=== PATIENT | male | born 1970 | race Caucasian/White ===

== ENCOUNTER 2022-03-14 05:19 | Day surgery (SDC) | payer OTHER ==
[~2022-03-14] VITALS: Ht 162.6 cm; Wt 75.2 kg
--- NOTE | ~2022-03-14 | HP ---
[facility] [address] [place], [place] [address] Draft ADMISSION DATE: 03/14/2022 REASON FOR ADMISSION: Giant incarcerated right inguinal hernia, incompletely reducible. HISTORY OF PRESENT ILLNESS: This 51-year-old white man is known to have a longstanding right inguinal hernia and a small left inguinal hernia as well. He has been evaluated for this in the past. He presented to the emergency room late last night, evaluated by Dr. Marie, showing massive amount of swelling in the right hemiscrotum and to smaller degree a hernia on the left side. Dr. Marie in conjunction with other personnel was unable to reduce the hernia. A CT scan was performed, which showed considerable loops of bowel out in a large right inguinal hernia. He is admitted for further evaluation and care to include repair of the right inguinal hernia. PAST MEDICAL HISTORY: Now recently positive for influenza A. He has no severe cough, though that may have been a factor in producing herniation at this time. He denies other chronic medical conditions. REVIEW OF SYSTEMS: He denies any shortness of breath. He has had no nausea or vomiting. PHYSICAL EXAMINATION: GENERAL: A small white man with lower lip piercing noted. NECK: Trachea is midline. CHEST: Clear. I hear no wheeze or rhonchi. HEART: Regular. ABDOMEN: Nondistended and soft. There is extremely large right scrotal hernia. Various manipulations allow for reduction of the hernia, but incompletely so. There is a left inguinal hernia that is reducible with manipulation. He appears to have hydrocele of the right hemiscrotum to a degree as well. IMAGING: Review of the CT scan is consistent with these findings. ASSESSMENT AND PLAN: The patient has incompletely reducible (incarcerated) right inguinal hernia, for which repair is recommended. His concurrent influenza A is notable, but will have to be contended with due to the need for repair of the hernia. The risks of bleeding, infection, recurrence, and other unforeseen complications were reviewed with him. He PATIENT NAME: KUSUM LISA HISTORY AND PHYSICAL DATE OF : 74 REPORT #: [id number] PHYSICIAN: IVETTE DENNIS MD PCP: NO PRIMARY CARE PHYSICIAN REPORT IS CONFIDENTIAL AND NOT TO BE RELEASED WITHOUT AUTHORIZATION [facility] [address] [place], [place] [address] Draft agrees to proceed. MD CAM Boyd/JAY /[id number] cc: LETICIA Kearney Copies: ~ PATIENT NAME: KUSUM LISA Bulmaro HISTORY AND PHYSICAL DATE OF : 74 REPORT #: [id number] PHYSICIAN: IVETTE DENNIS MD PCP: NO PRIMARY CARE PHYSICIAN REPORT IS CONFIDENTIAL AND NOT TO BE RELEASED WITHOUT AUTHORIZATION
--- NOTE | ~2022-03-14 | CONS ---
[facility] [address] [place], [place] [address] Draft DATE OF CONSULTATION: 03/14/2022 TIME: 11:10 a.m. ISSUE: Concerns regarding anesthesia plan. 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 He is known of this hernia in the past. The patient had a fair amount of coughing apparently which caused worsening of his herniation. The hernia was not able to be reduced by Dr. Deal with the assistance of a nurse (Dominic). I saw him myself this morning and was able to reduce the hernia essentially completely, though he does have a residual hydrocele on the right side inferiorly. Given the extensive amount of bowel that had herniated into the hemiscrotum, I recommended operative repair as it was not initially clear that complete reduction was undertaken. The patient was found to have influenza A on testing, likely accounting for his cough and acute exacerbation of his long-standing left and right inguinal hernias. Plans were made for operative repair of the large right inguinal hernia and discussion with the musculoskeletal physiotherapist (Shlomo Uriostegui CRNA) indicated a preferred anesthetic approach of an epidural or spinal anesthetic given his respiratory issue with influenza A. The patient has become adamant that he will allow "no needle to come toward my spine," and adamantly refuses any regional type anesthetic. I have conferred with the musculoskeletal physiotherapist about this situation. I think that the approach of regional anesthetic is optimal under the circumstances, particularly given his underlying influenza. The patient does understand that I would be fully supportive of regional anesthetic and I have assured him that it is safe, effective and in this situation quite appropriate and reasonable in lieu of a general anesthetic and the added risk that it would hazard with his active influenza. Despite his understanding of my recommendation and the musculoskeletal physiotherapist, he refuses surgery at this point. He says he will think about it in a month when he is over his upper respiratory infection. I advised him to avoid lifting excessively given the hernia, to maintain hydration as regards the influenza issue and to align with a primary care provider with in the [place] PATIENT NAME: KUSUM LISA CONSULTATION DATE OF : 74 REPORT #: [id number] PHYSICIAN: IVETTE DENNIS MD PCP: NO PRIMARY CARE PHYSICIAN REPORT IS CONFIDENTIAL AND NOT TO BE RELEASED WITHOUT AUTHORIZATION 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 Referral for re-evaluation of hernia could be made at that time. MD CAM Boyd/MODL /[id number] cc: Crow Deal DO Copies: CROW DEAL DO ~ PATIENT NAME: KUSUM LISA CONSULTATION DATE OF : 74 REPORT #: [id number] PHYSICIAN: IVETTE DENNIS MD PCP: NO PRIMARY CARE PHYSICIAN REPORT IS CONFIDENTIAL AND NOT TO BE RELEASED WITHOUT AUTHORIZATION
[~2022-03-14 05:19] MED LIST: LEVAQUIN500 MG PO; NORCO 5-325 TA1 EACH PO
--- NOTE | 2022-03-14 11:56 | NUR ---
0910: PATIENT TRANSFERRED FROM ER TO DAY SURGERY. PATIENT TO BATHROOM INDEPENDENTLY. VOID WITHOUT DIFFICULTY. RATES PAIN 2-3/10 IN RIGHT GROIN. LEFT AC IV SITE WNL. PATIENT WEIGHED PER STANDING SCALE.
--- NOTE | 2022-03-14 12:12 | NUR ---
1000: ANESTHESIA UPDATED ON INFLUENZA STATUS AND HIGH BP. DUONEB ORDERED. 1015: DUONEB STARTED. 1050: PATIENT REQUESTS TO SEE DR. DENNIS BEFORE PROCEEDING WITH ANYTHING FURTHER. 1100: DR. DENNIS IN TO SPEAK WITH PATIENT. 1110: SURGERY CANCELLED. PATIENT CAN BE DISCHARGED HOME AMBULATORY PER DR. DENNIS. 1120: IV DC'D WNL. TIP INTACT. DRESSING APPLIED. PATIENT ADVISED TO FOLLOW UP WITH PCP TO GET REFERRAL TO DR. DENNIS'S OFFICE OR OTHER GENERAL SURGEON. PATIENT EXPRESSES UNDERSTANDING. OFFERED PATIENT CARE RIDE VIA [facility]. PATIENT DECLINED. PATIENT DRESSED INDEPENDENTLY. DISCHARGED AMBULATORY.
--- NOTE | 2022-03-14 14:15 | EKG ---
[facility] [address] [facility] [place] [address] Signed Sinus bradycardia with sinus arrhythmia Nonspecific T wave abnormality Abnormal ECG No previous ECGs available Confirmed by COREY ALVARES MD ([id number]) on 03/14/2022 2:15:50 PM Electronically Signed By: COREY ALVARES MD 03/14/22 1415 PATIENT NAME: KUSUM LISA Electrocardiogram DATE OF : 74 PHYSICIAN: COREY ALVARES MD REPORT #: [id number] REPORT IS CONFIDENTIAL AND NOT TO BE RELEASED WITHOUT AUTHORIZATION
== END 2022-03-14 11:20 | disposition home or self-care (01) ==
LOC: ED 05:19 → DS 09:04
PROVIDERS: ATTEND Surgery
DX: K40.30 Unilateral inguinal hernia, with obstruction, without gangrene, not specified as recurrent (principal); Z53.8 Procedure and treatment not carried out for other reasons; F17.200 Nicotine dependence, unspecified, uncomplicated; I10 Essential (primary) hypertension
CPT/HCPCS: 36415; 74177; 80053; 81003; 85025; 87502; 93005; 93010; J0690; J1170; J2001; J2250; J2405; J3010; J7030; J7121; Q9967; U0003

== ENCOUNTER 2023-10-11 01:58 | Emergency (ER) | payer OTHER ==
[~2023-10-11] VITALS: Ht 165.1 cm; Wt 78.0 kg
[2023-10-11] MEDS ORDERED: ACETAMINOPHEN 500 MG TAB PO ONE (02:15)
[2023-10-11] MEDS ORDERED: DIPHTH,PERTUSS(ACELL),TET VAC 0.5 ML SYRINGE IM ONE (02:15)
[2023-10-11] MEDS ORDERED: AMOXICILLIN/CLAVULANATE K 875 MG HOME.PACK PO ONE (02:15)
[2023-10-11] MEDS ORDERED: AMOX TR-K CLV1 EAC1 PO (02:20)
[2023-10-11 02:50] VITALS: BP 114/68
== END 2023-10-11 02:50 | disposition home or self-care (01) ==
LOC: ED 01:58
DX: L08.9 Local infection of the skin and subcutaneous tissue, unspecified (principal); S61.451A Open bite of right hand, initial encounter; W55.01XA Bitten by cat, initial encounter; I10 Essential (primary) hypertension; F17.200 Nicotine dependence, unspecified, uncomplicated; Z23 Encounter for immunization
CPT/HCPCS: 90471; 90715; 99283-25; A9270

== ENCOUNTER 2023-11-24 21:15 | Emergency (ER) | payer OTHER ==
[~2023-11-24] VITALS: Ht 165.1 cm; Wt 78.9 kg
[~2023-11-24 21:15] MED LIST changes: +AMOX TR-K CLV1 EAC1 PO
[2023-11-24 21:29] LABS: BASOPHILS 0.8 % (0-2); EOSINOPHILS 1.6 % (0-6); HEMATOCRIT 41.8 % (35.0-50.0); MCH 28.7 (27-36); MCHC 33.5 g/dl (30-36); MCV 85.9 fl (81-99); MONOCYTES 4.7 % (0-12); NEUTROPHILS 69.9 % (39-80); PLATELET COUNT 245 K/uL (140-440); RBC 4.87 M/ul (4.3-5.7); RDW 13.9 (10.5-15.0)
[2023-11-24] MEDS ORDERED: lisinopriL 20 MG TAB PO ONE (21:30)
[2023-11-24] MEDS ORDERED: AMLODIPINE BESYLATE 10 MG TAB PO ONE (21:30)
[2023-11-24] MEDS ORDERED: ATORVASTATIN CA40 MG PO (21:34)
[2023-11-24] MEDS ORDERED: AMLODIPINE BESY10 MG PO (21:34)
[2023-11-24] MEDS ORDERED: LISINOPRIL40 MG PO (21:34)
[2023-11-24] MEDS ORDERED: METOPROLOL SUC100 MG PO (21:34)
[2023-11-24] MEDS ORDERED: ASPIRIN81 MG PO (21:35)
[2023-11-24] MEDS ORDERED: CHLORTHALIDONE25 MG PO (21:35)
[2023-11-24 21:38] LABS: INR 1.01 (0.80-1.30); PROTIME 12.6 Sec (11.2-14.2)
[2023-11-24 21:48] LABS: ALBUMIN 3.2 g/dL (3.4-5.0); ALBUMIN/GLOBULIN RATIO 0.97 (1.1-2.4); ANION GAP 10.9 (7-21); BILIRUBIN, TOTAL 0.3 ng/dL (0.2-1.0); BUN/CREATININE RATIO 18.18 (6.0-28.6); CALCIUM 8.9 mg/dL (8.5-10.1); CREATININE, SERUM 1.1 mg/dL (0.70-1.30); POTASSIUM 2.9 mmol/L (3.5-5.1); PROTEIN, TOTAL 6.5 g/dL (6.4-8.2)
[2023-11-24 22:24] LABS: BILIRUBIN, URINE NEGATIVE (negative); BLOOD/HGB, URINE NEGATIVE (Negative); KETONE, URINE NEGATIVE (Negative); LEUK ESTERASE, URINE TRACE (negative); NITRITE, URINE NEGATIVE (negative)
[2023-11-24] MEDS ORDERED: POTASSIUM CHLO20 ME2 PO (22:25)
[2023-11-24] MEDS ORDERED: POTASSIUM CHLORIDE 10 MEQ TABCR PO ONE (22:30)
[2023-11-24 22:38] LABS: AMPHETAMINES, URINE NEGATIVE (NEGATIVE); BARBITURATES, URINE NEGATIVE (NEGATIVE); BENZODIAZEPINE, URINE NEGATIVE (NEGATIVE); BUPRENORPHINE, URINE NEGATIVE (NEGATIVE); CANNABINOID, URINE POSITIVE (NEGATIVE); COCAINE, URINE NEGATIVE (NEGATIVE); ECSTASY, URINE NEGATIVE (NEGATIVE); FENTANYL, URINE NEGATIVE (NEGATIVE); METHADONE, URINE NEGATIVE (NEGATIVE); OPIATES, URINE NEGATIVE (NEGATIVE); OXYCODONE, URINE NEGATIVE (NEGATIVE); PHENCYCLIDINE, URINE NEGATIVE (NEGATIVE)
[2023-11-24 22:41] LABS: BACTERIA, URINE RARE /hpf (negative); CASTS, URINE NONE SEEN \\lpf; COLLECTION TYPE, URINE CLEAN CATCH; CRYSTALS, URINE NONE SEEN (0-1+); EPITHELIAL CELLS, URINE SQUAMOUS 1+ /lpf (0-1+); REFLEX CULTURE, URINE Yes (No)
[2023-11-24 22:51] VITALS: BP 131/74
--- NOTE | 2023-11-25 21:31 | EKG ---
[facility] [address] [facility] [place] [address] Signed Sinus bradycardia Possible Left atrial enlargement Incomplete right bundle branch block Borderline ECG Confirmed by Renu Briggs MD () on 11/25/2023 9:31:32 PM Electronically Signed By: REUN BRIGGS MD 11/25/232130 PATIENT NAME: KUSUM BUSTILLOS Electrocardiogram DATE OF : 74 PHYSICIAN: RENU BRIGGS MD REPORT #: [id number] REPORT IS CONFIDENTIAL AND NOT TO BE RELEASED WITHOUT AUTHORIZATION
== END 2023-11-24 22:55 | disposition home or self-care (01) ==
LOC: ED 21:15
PROVIDERS: Internal Medicine
DX: I16.0 Hypertensive urgency (principal); I10 Essential (primary) hypertension; F17.200 Nicotine dependence, unspecified, uncomplicated; Z91.030 Bee allergy status; Z79.899 Other long term (current) drug therapy; Z79.82 Long term (current) use of aspirin
CPT/HCPCS: 36415; 71045; 80053; 80307; 81001; 83735; 84484; 85025; 85610; 87088; 93005; 93010; 99285-25; A9270

== ENCOUNTER 2024-08-14 23:26 | Emergency (ER) | payer OTHER | END 2024-08-15 00:57 | disposition home or self-care (01) | LOC: ED 23:26 | DX: K04.7 Periapical abscess without sinus (principal); K01.1 Impacted teeth; I10 Essential (primary) hypertension; F17.200 Nicotine dependence, unspecified, uncomplicated; Z91.030 Bee allergy status; Z79.899 Other long term (current) drug therapy ==